=== PATIENT | female | born 2000 ===

== ENCOUNTER 2019-10-08 11:46 | Emergency (ER) | payer BC, OTHER ==
[2019-10-08 12:13] LABS: ABS Lymphocytes 2.1 10^3/ul (1.0-4.8); ABS Monocytes 0.5 10^3/ul (0-0.8); ABS Neutrophils 1.9 10^3/ul (1.5-7.7); Hematocrit 44 % (35-47); Hemoglobin 14.7 g/dL (12.0-16.0); Lymphocyte % 46.4 %; Mean Corpuscular HGB Conc 34 g/dL (31-36); Mean Corpuscular Hemoglobin 32 pg (27-31); Mean Corpuscular Volume 94 fL (80-97); Nucleated Red Blood Cells % 0.2; Platelet Count 177 10^3/uL (150-450); Red Blood Count 4.67 10^6 /uL (3.70-4.87); Red Cell Distribution Width 13 % (10-15); White Blood Count 4.5 10^3/uL (3.5-10.8)
[2019-10-08 12:29] LABS: INR 1.14 (0.82-1.09)
[2019-10-08 12:32] LABS: Albumin 4.6 g/dL (3.2-5.2); Albumin/Globulin Ratio 1.8 (1-3); Calcium 10.2 mg/dL (8.6-10.3); EGFR African American 97.8 (>60); EGFR Non-African American 80.9 (>60); Globulin 2.6 g/dL (2-4); Potassium 3.9 mmol/L (3.5-5.0); Total Bilirubin 0.9 mg/dL (0.2-1.0); Total Protein 7.2 g/dL (6.4-8.9)
--- NOTE | 2019-10-08 14:01 | ED ---
Complex/Multi-Sys Presentation - HPI Summary HPI Summary: This pt is a 19 y/o female presenting to [facility] c/o chest pain and SOB with little exertion. 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 Pt states for the past few weeks she been feeling "off" with work outs, having headaches after working out, worsening this week. Pt notes she has been experiencing pain in her chest and has been unable to take a deep breath. Pt notes she feels exhausted with just walking 10 steps and has been very out of breath with minimal exertion. She reports she jogged 4 miles yesterday, which is less miles than she typically jogs or runs, and her pulse was 185. Denies any long distance travel by car or plane. Pt denies any oral contraceptive use. Pt has an IUD (Kyleena) since 2 years ago. LMP: "a while back" due to IUD. Denies any tobacco use. - History Of Current Complaint Chief Complaint: EDChestPainROMI Time Seen by Provider: 10/08/19 13:54 Hx Obtained From: Patient Onset/Duration: Lasting Weeks, Still Present Timing: Weeks Severity Currently: Moderate Location: Pain At: - chest Aggravating Factor(s): nothing Alleviating Factor(s): nothing Associated Signs And Symptoms: Positive: Headache, SOB, Chest Pain. Negative: Fever - Allergies/Home Medications Allergies/Adverse Reactions: Allergies Allergy/AdvReac Type Severity Reaction Status Date / Time MS Cefdinir [Cefdinir] Allergy Hallucinati Verified 09/11/17 14:18 ons Home Medications: Home Medications Levonorgestrel (Iud) [Kyleena IUD] 17.5 mcg IU SEE INSTRUCTIONS 10/08/19 [ History Confirmed 10/08/19] PMH/Surg Hx/FS Hx/Imm Hx Endocrine/Hematology History: Denies: Hx Diabetes Cardiovascular History: Denies: Hx Hypertension, Hx Pacemaker/ICD History: Denies: Hx Renal Disease Musculoskeletal History: Denies: Hx Osteoporosis Sensory History: Denies: Hx Hearing Aid Psychiatric History: Denies: Hx Panic Disorder - Surgical History Surgical History: Yes Surgery Procedure, Year, and Place: WISDOM TEETH Infectious Disease History: No Infectious Disease History: Denies: Traveled Outside the [place] in Last 30 Days - Family History Family History: CHF - Social History Alcohol Use: None Substance Use Type: Reports: None Smoking Status (MU): Never Smoked Tobacco Review of Systems Negative: Fever Positive: Chest Pain Positive: Shortness Of Breath Positive: Headache All Other Systems Reviewed And Are Negative: Yes Physical Exam - Summary Physical Exam Summary: GENERAL: Patient is a well-developed and nourished female who is lying comfortable in the stretcher. Patient is not in any acute respiratory distress. HEAD AND FACE: No signs of trauma. No ecchymosis, hematomas or skull depressions. No sinus tenderness. EYES: PERRLA, EOMI x 2, No injected conjunctiva, no nystagmus. EARS: Hearing grossly intact. Ear canals and tympanic membranes are within normal limits. MOUTH: Oropharynx within normal limits. NECK: Supple, trachea is midline, no adenopathy, no JVD, no carotid bruit, no c- spine tenderness, neck with full ROM. CHEST: Symmetric, no tenderness at palpation LUNGS: Clear to auscultation bilaterally. No wheezing or crackles. CVS: Regular rate and rhythm, S1 and S2 present, no murmurs or gallops appreciated. ABDOMEN: Soft, non-tender. No signs of distention. No rebound no guarding, and no masses palpated. Bowel sounds are normal. EXTREMITIES: FROM in all major joints, no edema, no cyanosis or clubbing. NEURO: Alert and oriented x 3. No acute neurological deficits. Speech is normal and follows commands. SKIN: Dry and warm Triage Information Reviewed: Yes Vital Signs On Initial Exam: Initial Vitals Temp Pulse Resp BP Pulse Ox 98.2 F 48 18 101/56 100 10/08/19 11:46 10/08/19 11:46 10/08/19 11:46 10/08/19 11:46 10/08/19 11:46 Vital Signs Reviewed: Yes Procedures - Sedation Patient Received Moderate/Deep Sedation with Procedure: No Diagnostics - Vital Signs Vital Signs Temp Pulse Resp BP Pulse Ox 10/08/19 13:08 98.6 F 55 16 98/59 99 10/08/19 11:46 98.2 F 48 18 101/56 100 - Laboratory Lab Results: Lab Results 10/08/19 10/08/19 10/08/19 Range/Units 11:56 11:56 11:58 WBC 4.5 (3.5-10.8) 10^3/uL RBC 4.67 (3.70-4.87) 10^6 /uL Hgb 14.7 (12.0-16.0) g/dL Hct 44 (35-47) % MCV 94 (80-97) fL MCH 32 H (27-31) pg MCHC 34 (31-36) g/dL RDW 13 (10-15) % Plt Count 177 (150-450) 10^3/uL MPV 9.0 (7.4-10.4) fL Neut % (Auto) 42.2 % Lymph % (Auto) 46.4 % [place] % (Auto) 10.1 % Eos % (Auto) 1.0 % Baso % (Auto) 0.3 % Absolute Neuts (auto) 1.9 (1.5-7.7) 10^3/ul Absolute Lymphs (auto) 2.1 (1.0-4.8) 10^3/ul Absolute Monos (auto) 0.5 (0-0.8) 10^3/ul Absolute Eos (auto) 0.0 (0-0.6) 10^3/ul Absolute Basos (auto) 0.0 (0-0.2) 10^3/ul Absolute Nucleated RBC 0.0 10^3/ul Nucleated RBC % 0.2 INR (Anticoag Therapy) 1.14 H (0.82-1.09) Sodium 140 (135-145) mmol/L Potassium 3.9 (3.5-5.0) mmol/L Chloride 106 (101-111) mmol/L Carbon Dioxide 29 (22-32) mmol/L Anion Gap 5 (2-11) mmol/L BUN 16 (6-24) mg/dL Creatinine 0.89 (0.51-0.95) mg/dL Est GFR ( Amer) 97.8 (>60) Est GFR (Non-Af Amer) 80.9 (>60) BUN/Creatinine Ratio 18.0 (8-20) Glucose 104 H (70-100) mg/dL Calcium 10.2 (8.6-10.3) mg/dL Total Bilirubin 0.90 (0.2-1.0) mg/dL AST 21 (13-39) U/L ALT 15 (7-52) U/L Alkaline Phosphatase 45 (34-104) U/L Troponin I 0.00 (<0.03) ng/mL Total Protein 7.2 (6.4-8.9) g/dL Albumin 4.6 (3.2-5.2) g/dL Globulin 2.6 (2-4) g/dL Albumin/Globulin Ratio 1.8 (1-3) Result Diagrams: 10/08/19 11:56 10/08/19 11:56 Lab Statement: Any lab studies that have been ordered have been reviewed, and results considered in the medical decision making process. - Radiology Chest XR Radiology Interpretation Completed By: Radiologist Summary of Radiographic Findings: IMPRESSION: No evidence for active cardiopulmonary disease. Dr. Julien has reviewed this report. - CT Chest CTA CT Interpretation Completed By: Radiologist Summary of CT Findings: IMPRESSION: #. Negative for pulmonary embolism. #. Upper normal heart size. #. No acute intrathoracic process evident. Dr. Julien has reviewed this report. Complex Multi-Symp Course/Dx Assessment/Plan: This pt is a 19 y/o female presenting to [facility] c/o chest pain and SOB with little exertion. 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 Pt states for the past few weeks she been feeling "off" with work outs, having headaches after working out, worsening this week. Pt notes she has been experiencing pain in her chest and has been unable to take a deep breath. Pt notes she feels exhausted with just walking 10 steps and has been very out of breath with minimal exertion. She reports she jogged 4 miles yesterday, which is less miles than she typically jogs or runs, and her pulse was 185. Denies any long distance travel by car or plane. Pt denies any oral contraceptive use. Pt has an IUD (Kyleena) since 2 years ago. LMP: "a while back" due to IUD. Denies any tobacco use. Blood test results without any significant abnormality except for INR 1.14. D-dimer is less than 200. CMP without any significant abnormality except for glucose of 104. Chest x-ray impression: No evidence for acute cardiopulmonary disease. The patient continues to have some shortness of breath therefore I decided to do a chest CT since the patient is taking contraception. Chest CTA impression: Negative for pulmonary embolism. Upper normal heart size. No acute intrathoracic process evident. At this point since the chest CT is negative for PE she will be discharged home with follow up from her primary care physician. Patient was given Toradol in the ED. Patient reports that all symptoms have resolved. Because the patient has no significant comorbidities and no family history of cardiovascular disease at her age the patient will be discharged home with follow up of PMD. I discussed all the findings and test results with the patient. Patient was instructed to return to the emergency room immediately if any of the symptoms return or worsen. Patient understands and agrees. Plan of care was discussed with the patient and patient understands and agrees. All questions were answered at patient satisfaction. There were no further complaints or concerns. PE before discharge: CVS: S1 and S2 present. No murmurs appreciated. Abdominal exam before discharge: Soft, non-tender. No signs of distention. No rebound no guarding, and no masses palpated. Bowel sounds are normal. Patient is alert and oriented x 3. Patient is hemodynamically stable. - Diagnoses Differential Diagnoses/HQI/PQRI: Aspiration, Cardiac Ischemia, Metabolic Abnormality, Sepsis Provider Diagnoses: Chest pain Discharge ED - Sign-Out/Discharge Documenting (check all that apply): Patient Departure - Discharge home - Discharge Plan Condition: Stable Disposition: HOME Patient Education Materials: Chest Pain (ED) Referrals: [facility] [Outside] Additional Instructions: FOLLOW UP WITH YOUR PRIMARY CARE PROVIDER IN 2-3 DAYS. RETURN TO THE EMERGENCY DEPARTMENT FOR ANY WORSENING OR NEW SYMPTOMS. - Billing Disposition and Condition Condition: STABLE Disposition: Home - Attestation Statements Document Initiated by Luisito: Yes Documenting Scribe: Anaid Erwin Provider For Whom Luisito is Documenting (Include Credential): Celestine Julien MD Scribe Attestation: Anaid Leal scribed for Celestine Julien MD on 10/10/19 at 1845. Scribe Documentation Reviewed: Yes Provider Attestation: The documentation as recorded by the Anaid argueta accurately reflects the service I personally performed and the decisions made by , Celestine Julien MD Status of Scribe Document: Viewed
[2019-10-08] MEDS ORDERED: Iohexol 350* (CONTRAST) 500 ML MDV IV ONE (14:24)
[2019-10-08] MEDS ORDERED: Ketorolac INJ* 30 MG/ML 1 ML VIAL IV PUSH ONE (15:42)
[2019-10-08 15:57] VITALS: BP 124/73
== END 2019-10-08 15:56 | disposition home or self-care (01) ==
LOC: ED 11:46
DX: R07.9 Chest pain, unspecified (principal); Z88.1 Allergy status to other antibiotic agents
CPT/HCPCS: 36415; 71046; 71275; 80053; 84484; 85025; 85379; 85610; 93005; 99284; J1885; Q9967